=== PATIENT | female | born 1955 ===

== ENCOUNTER → 2023-11-03 12:10 | Outpatient (REF) | payer OTHER, SELFPAY ==
--- NOTE | 2023-10-21 10:59 | CM ---
Patient is scheduled for an elective R THR on 11/25/23. Spoke with patient prior to surgery via telephone. Introduced role of Orthopedic Navigator. Patient reports that she lives with two friend in a one story home. There are two steps to enter. She
currently functions independently. She has a cane, rollator, raised toilet seat, firm cushion and hip kit. She has never had VN services. PCP is Esau Maxwell.
Discussed orthopedic program and post surgical plans. Reviewed anticipated length of stay and that goal is for her to return home at discharge. Also reviewed outpatient PT. Patient is in agreement with tentative plan and will go directly to
outpatient PT. She will have support from her friends when she goes home.
Patient has completed online education.
Plan: Orthopedic Navigator will remain available to assist with the care of patient and will reassess discharge needs after surgery.
[2023-11-03 12:09] VITALS: BMI 42.5
[2023-11-03 13:46] LABS: Hematocrit 44.8 % (37.0-47.0); Hemoglobin 15.5 g/dL (12.0-16.0); Mean Corp Hgb Conc. 34.6 g/dL (33.0-37.0); Mean Corpuscular Hgb 31.3 pg (27.0-31.0); Mean Corpuscular Volume 90.3 fL (81.0-99.0); Mean Platelet Volume 10.3 fL (7.4-10.4); Platelet Count 248 10^3/uL (130-400); Red Blood Cell Count 4.96 10^6/uL (4.20-5.40); White Blood Cell Count 6.4 10^3/uL (4.8-10.8)
[2023-11-03 14:20] LABS: ALT (SGPT) 20 U/L (0-35); AST (SGOT) 21 U/L (14-36); Albumin 4.5 g/dl (3.5-5.0); Alkaline Phosphatase 91 U/L (38-126); Blood Urea Nitrogen 17 mg/dl (7-17); Calcium 9.7 mg/dl (8.4-10.2); Carbon Dioxide 24 mmol/L (22-30); Chloride 103 mmol/L (98-107); Estimated Creatinine Clearance 84 ml/min; Glucose 108 mg/dl (70-99); Sodium 137 mmol/L (135-145); Total Protein 7.3 g/dl (6.3-8.2); eGFR > 60.00
[2023-11-03 14:27] LABS: Glycohemoglobin (HgbA1c) 5.5 % (4.0-5.6)
[2023-11-03 14:57] VITALS: BMI 42.5
== END ==
LOC: REG 12:10
PROVIDERS: ATTENDING PHYSICIAN Orthopaedic Surgery; FAMILY PHYSICIAN Family Medicine; OTHER PHYSICIAN Physician Assistant Medical
DX: M16.11 Unilateral primary osteoarthritis, right hip (principal); Z01.818 Encounter for other preprocedural examination
CPT/HCPCS: 36415; 80053; 83036; 85027; 87070; 93005

== ENCOUNTER 2024-04-13 12:06 | Inpatient (IN) | payer OTHER, SELFPAY ==
[2024-03-21 14:05] VITALS: BMI 43.4
[2024-03-21 15:04] LABS: Hematocrit 43.9 % (37.0-47.0); Hemoglobin 15.1 g/dL (12.0-16.0); Mean Corp Hgb Conc. 34.4 g/dL (33.0-37.0); Mean Corpuscular Hgb 30.6 pg (27.0-31.0); Mean Platelet Volume 9.9 fL (7.4-10.4); Platelet Count 230 10^3/uL (130-400); Red Blood Cell Count 4.93 10^6/uL (4.20-5.40); Red Cell Dist. Width 13.2 % (11.5-14.5); White Blood Cell Count 5.9 10^3/uL (4.8-10.8)
[2024-03-21 15:05] LABS: ALT (SGPT) 22 U/L (0-35); AST (SGOT) 24 U/L (14-36); Albumin 4.5 g/dl (3.5-5.0); Alkaline Phosphatase 80 U/L (38-126); Blood Urea Nitrogen 16 mg/dl (7-17); Calcium 9.5 mg/dl (8.4-10.2); Carbon Dioxide 27 mmol/L (22-30); Chloride 103 mmol/L (98-107); Estimated Creatinine Clearance 82 ml/min; Glucose 104 mg/dl (70-99); Potassium 3.9 mmol/L (3.5-5.1); Sodium 141 mmol/L (135-145); Total Protein 7.1 g/dl (6.3-8.2); eGFR > 60.00
[2024-03-22 09:43] LABS: Glycohemoglobin (HgbA1c) 5.3 % (4.0-5.6)
[2024-04-07 09:23] VITALS: BMI 43.4
[2024-04-13] VITALS (12 sets, daily range): BP systolic 129–156; BP diastolic 81–105; BMI 43.4
[2024-04-13] MEDS: CELEBREX 200 MG PO (12:38)
[2024-04-13] MEDS: TYLENOL 650 MG PO ×2 (12:38→20:05)
--- NOTE | 2024-04-13 14:17 | W.PN.UPDATE ---
Update Note
Progress Note Update
R hip OA s/p R LIANG w/ Dr Boothe 04/13/24
- s/p L LIANG by Dr. Eng
DVT prophylaxis - ASA, b/l venous foot pumps
HTN - + parameters - monitor BP
Fibromyalgia - monitor pain and adjust meds prn
CAD, non-obstructive
Mild valvular disease
Venous insufficiency
Migraines
RLS
Vertigo
DDD
Hypothyroidism
Depression
Anxiety
Morbid obesity BMI 43.4
[2024-04-13] MEDS: SUBLIMAZE 50 MCG IV ×2 (16:16→16:25)
[2024-04-13] MEDS: DILAUDID 0.5 MG IV ×3 (16:39→17:24)
--- NOTE | 2024-04-13 16:59 | OR.RPT ---
Operative Report
Operative Report
Orthopaedic Surgery Operative Note
DATE OF OPERATION: 04/13/2024
PREOPERATIVE DIAGNOSES: Osteoarthritis, right hip
POSTOPERATIVE DIAGNOSES: Same
OPERATION PERFORMED: Right total hip arthroplasty (58811 with 22 modifier for complexity)
SURGEON: Yg Boothe MD
LITHOGRAPH OPERATOR: Herman Gusman PA-C who assisted with patient positioning and retraction
ANESTHESIA: Spinal
COMPLICATIONS: None.
ESTIMATED BLOOD LOSS: 50 mL.
DRAINS: None
SPECIMEN: None
FINDINGS: Advanced articular cartilage wear on the femoral head and acetabulum.
IMPLANTS:
Biomet G7 Acetabular Shell, cluster hole, size 52
Biomet G7 Highly Crosslinked PE Liner, neutral
Magdalena M/L Taper femoral stem, size 10 with standard neck length and standard offset
Biolox Ceramic Head, size 36mm +0
INDICATIONS: The patient presented to my office with debilitating right hip pain due to osteoarthritis. We reviewed the natural history of this problem, as well as the risks, benefits, and alternatives of various treatment options. The patient
exhausted all nonoperative treatment options and wished to proceed with hip replacement surgery. The patient understood the risks which included, but were not limited to, bleeding, infection, failure to relieve pain, more pain than preop, damage to
blood vessels and nerves, need for reoperation, mechanical failure of the implants, wound healing problems, stiffness, instability, blood clot, pulmonary embolism, myocardial infarction, pneumonia, arrhythmia, CVA, and . The patient accepted
these risks and wished to proceed. All questions were answered, and informed consent was obtained.
PROCEDURE IN DETAIL: The patient was identified in the preoperative holding area. The right hip was identified as the operative site. The patient was taken in the operating room and transferred to the operative table. Spinal anesthesia was
performed. IV antibiotics and tranexamic acid were administered. The patient was placed in the lateral position with Stulberg hip positioners. Axillary roll was placed. The down leg was well padded. All bony prominences were well padded. The
operative limb was prepped and draped in the usual sterile fashion.
Time out was performed. A posterolateral approach to the hip was used. The skin incision was centered over the greater trochanter. This was taken down sharply through subcutaneous tissues. Meticulous hemostasis was achieved throughout the case with
electrocautery. We split the fascia phill in line with skin incision. I split the gluteus uadrey bluntly. We cauterized all crossing vessels as we split it. I palpated the sciatic nerve and made sure it was well posterior in the operative field. It
was protected throughout the case.
I performed a partial bursectomy to identify the short external rotators. The gluteus medius and minimus were identified and retracted anteriorly. I incised the piriformis tendon and conjoint tendon at their insertions. These were tagged for later
repair. I then performed a trapezoidal capsulotomy. The edges were tagged for later repair. I referenced the cut edge of the capsular flap to 2 fixed points on the greater trochanter for assistance with recreation of limb length and offset. I then
dislocated the hip posteriorly. I performed a femoral neck osteotomy approximately 10 mm above the lesser trochanter, as per preoperative templating. The femoral head measured 48 mm in outer diameter. The distance between neck cut and the center of
femoral head was 35 I placed a curve hohmann retractor over the anterior lip of the acetabulum between the labrum and the anterior hip capsule. A second retractor was placed inferiorly just distal to the transverse acetabular ligament.
Circumferential view of the acetabulum was achieved. I incised the labrum and pulvinar with electrocautery. I started with a 47 mm reamer and reamed down to the medial wall. I then sequentially reamed up to a 51mm reamer. This gave a nice bed of
bleeding bone with excellent column support anteriorly and posteriorly. I impacted the acetabular shell in approximately 40 degrees of abduction and 20 degrees of anteversion. I matched the anteversion of the transverse acetabular ligament. I also
made sure that the anterior rim of the socket was not proud of the anterior wall to minimize the chance of iliopsoas tendinitis. I confirmed the cup was well-seated. I then impacted a neutral liner and confirmed it was well seated with the locking
mechanism.
On the femoral side, I use a box osteotome to open the proximal starting point. I found the canal with a Charnley awl and a lateralizing reamer. I then used the Magdalena M/L taper broaches sequentially to prepare the femoral canal. The size 10 came to
a stop at the desired level and had excellent axial and rotational stability. We trialed with a trial ball head. The hip was taken through a complete range of motion. It was noted to be stable in extension without impingement. It was stable in the
position of sleep and in flexion with internal rotation. The limb length and offset were checked compared to the capsular flap and was appropriate. The measured length between the neck cut and center of the trial femoral head was 37.5 mm.
I removed the trials. I impacted the femoral implant to match the galena version. It had excellent axial and rotational stability. Trial ball head was placed, and I reduced the hip and took the hip through range of motion. There was no impingement
in external rotation and extension. Position of sleep was stable. At 90 degrees of flexion and slight adduction, the hip could be internally rotated to 90 degrees with no subluxation. I palpated the sciatic nerve, which was tension free and
unharmed. Based on our capsular flap measurement, we had restored the offset and leg length. The trial ball head was removed, and the final ball head was impacted onto a clean and dry Rosales taper. The hip was reduced.
A dilute betadine soak was performed for approximately 3 minutes, and then the hip was copiously irrigated. I repaired the capsule, piraformis, and conjoint tendon with #2 Ethibond to drill holes in the greater trochanter. Local anesthetic was
injected. The fascia phill was closed with #1 PDS in running fashion. The subcutaneous tissues were closed with 2-0 PDS in running fashion. The skin was reapproximated with 3-0 Monocryl subcuticular suture. I placed a Prineo dressing followed by a
Mepilex Ag dressing. The patient awoke from anesthesia without difficulty. Sponge and instrument counts were correct x2 at the end of the case.
I was present and participated in the entire procedure. The patient was sent to the recovery room in stable condition. Of note, 22 modifier was added for BMI >40kg/m2 which added 20 additional minutes for positioning, exposure, and implanting the
components
Sen Boothe MD
[2024-04-13] MEDS: ROXICODONE 5 MG PO (17:08)
[2024-04-13] MEDS: ZOFRAN 4 MG IV (17:58)
--- NOTE | 2024-04-13 18:01 | SUR.PHASEI ---
Immediately prior to leaving pacu pt stated she was starting to have some nausea. Pt medicated with zofran prior to leaving pacu.
--- NOTE | 2024-04-13 18:10 | PTCARENOTE ---
Pt received from the PACU via bed. Transport was w/o incident. Pt is Awake, sl drowsy, answers questions appropriately. Pt reports her pain as manageable at present, and admits to mild nausea. Pt was medicated with Zofran in PACU prior to transfer
to [facility]. VSS, pt is afebrile. Pt's Right hip with Silver Mepilix dressing C/D/I no drainage noted. Pt instructed on plan of care. Pt verbalized understanding of instructions. Call mosher is at bedside.
[2024-04-13] MEDS: TYLENOL PO (18:31)
[2024-04-13] MEDS: DIOVAN 160 MG PO (18:45)
[2024-04-13] MEDS: NORMOSOL-R/PLASMALYTE-A 1000 IV (18:45)
[2024-04-13] MEDS: ASPIRIN 325 MG PO (18:46)
[2024-04-13] MEDS: CYMBALTA DELAYED RELEASE 60 MG PO (18:46)
[2024-04-13] MEDS: PROTONIX 40 MG PO (18:47)
[2024-04-13] MEDS: COLACE 100 MG PO (20:04)
[2024-04-13] MEDS: BACTROBAN 2% OINTMENT 1 APPLIC NASAL (20:04)
[2024-04-13] MEDS: DECADRON 4 MG PO (20:05)
[2024-04-13] MEDS: COMPAZINE 5 MG PO (20:05)
[2024-04-13] MEDS: ROXICODONE 10 MG PO (20:05)
[2024-04-13] MEDS: SENOKOT 17.2 MG PO (20:06)
[2024-04-13] MEDS: ANCEF 5 IV (22:25)
[2024-04-14 00:01] VITALS: BP 115/73
[2024-04-14] MEDS: TYLENOL 650 MG PO ×3 (00:15→09:40)
[2024-04-14] MEDS: ROXICODONE 10 MG PO ×2 (00:17→04:45)
[2024-04-14 03:37] VITALS: BP 131/86
[2024-04-14] MEDS: SYNTHROID 137 MCG PO (04:45)
[2024-04-14] MEDS: ANCEF 5 IV (05:47)
[2024-04-14 06:40] LABS: Hemoglobin 13.7 g/dL (12.0-16.0)
[2024-04-14 06:57] VITALS: BP 130/82
[2024-04-14] MEDS: DIOVAN PO (08:32)
[2024-04-14] MEDS: CYMBALTA DELAYED RELEASE 60 MG PO (08:33)
[2024-04-14] MEDS: ASPIRIN 325 MG PO (08:33)
[2024-04-14] MEDS: CELEBREX 200 MG PO (08:33)
[2024-04-14] MEDS: PROTONIX 40 MG PO (08:33)
[2024-04-14] MEDS: BACTROBAN 2% OINTMENT 1 APPLIC NASAL (08:34)
[2024-04-14] MEDS: COLACE 100 MG PO (08:34)
[2024-04-14] MEDS: SENOKOT 17.2 MG PO (08:34)
[2024-04-14] MEDS: DECADRON 4 MG PO (08:34)
[2024-04-14] MEDS: COMPAZINE 5 MG PO (08:41)
[2024-04-14] MEDS: TRANSDERM-SCOP 1 PATCH TRANSDERM (09:35)
[2024-04-14] MEDS: ZOFRAN 4 MG IV (09:39)
[2024-04-14] MEDS: NEURONTIN 200 MG PO (09:39)
[2024-04-14] MEDS: LIDOCAINE 4% PATCH 2 PATCH TOPICAL (09:40)
[2024-04-14] MEDS: FIORICET 1 TAB PO (09:40)
[2024-04-14 11:00] VITALS: BP 137/89
[2024-04-14 11:45] VITALS: BP 136/74; PULSE 76
[2024-04-14] MEDS: ULTRAM 50 MG PO (11:46)
--- NOTE | 2024-04-14 12:10 | W.PN.ORTHO ---
Today's Communication / Plan
-
Await PT recs. Pt did well w/ OT.
D/c later today if remaining clinically stable.
Assessment
.
Distal Motor Intact: Yes
Dressing:
Clean, dry and intact.
Assessment:
R hip OA s/p R LIANG w/ Dr Boothe 04/13/24
- s/p L LIANG by Dr. Eng
DVT prophylaxis - ASA, b/l venous foot pumps
Post-op nausea - likely 2* Oxycodone (previous ADRs to Dilaudid, Morphine) - will switch to PO Tramadol
- Add Scopolamine patch d/t underlying motion sickness
- Has Zofran prn upon d/c
Headache, consistent w/ her migraines - previous triptan use - Fioricet provided
HTN - + parameters - BPs overall stable
Fibromyalgia - pain meds further adjusted to include Gabapentin for neuropathic pain, lidocaine patches
CAD, non-obstructive
Mild valvular disease
Venous insufficiency
Migraines
RLS
Vertigo
DDD
Hypothyroidism
Depression
Anxiety
Morbid obesity BMI 43.4
Plan
.
Surgery / Date: R LIANG w/ Dr Boothe 04/13/24
DVT Prophylaxis: Aspirin
Activity:
Out of bed.
PT/OT
Discharge Plan: Home w/ Outpatient PT
Subjective
.
.:
Patient examined resting in her chair.
Post-op nausea - likely 2* Oxycodone.
Reports a headache this AM which is comparable to her migraines.
Vital Signs and Labs
.
Vital Signs and Labs:
Lab Results
04/14/24 06:27
03/21/24 13:30
Temp Pulse Resp BP Pulse Ox
97.7 F 79 15 130/82 95
04/14/24 06:57 04/14/24 06:57 04/14/24 06:57 04/14/24 06:57 04/14/24 06:57
Physical Exam
-
HEENT: No pallor, cyanosis, or jaundice. Throat clear.
NECK: Supple. No JVD.
RESPIRATORY: Lungs clear to auscultation.
CVS: S1, S2 normal. RRR.�
ABDOMEN: Soft, non-tender. No distension. Morbidly obese.
EXTREMITIES: Minimal bruising around R hip. Strength equal, no calf pain with palpation/dorsiflexion. Calves soft.
SOFTWARE QUALITY MANAGER: AOx3. No focal deficits. pharmacy grad intern grossly intact
[2024-04-14 12:23] VITALS: BP 137/89; PULSE 79; O2SAT 96
--- NOTE | 2024-04-14 12:33 | W.DS.TRANS ---
DC Summary - Cath Lab Tech
-
Discharge Instructions:
Sleep Apnea Risk Intermediate
Discharge Diagnosis/Procedures R hip OA s/p R LIANG w/ Dr Boothe 04/13/24
Diet Regular
Activity As tolerated,With Walker
Driving Restrictions Not until seen by your Dr
Bathing Restrictions OK to Shower
Other Services PT
Wound Care Leave dressing on until seen by surgeon's office
for follow-up.
Instructions:
Stand-Alone Forms: Total Hip/Knee Replacement D/C
Changes to Home Medications: Yes
Discharge Medications:
DC Medications w/original date entered in [employer]
duloxetine 60 mg capsule,delayed release (Cymbalta) 60 mg PO DAILY Mental Health/Anxiety 10/29/23
levothyroxine 137 mcg tablet 137 mcg PO DAILY Thyroid 10/29/23
mupirocin 2 % topical ointment 1 applic topical BID surgery 04/07/24
acetaminophen 500 mg tablet (Tylenol Extra Strength) 1,000 mg (2 x 500 mg) PO Q6H #60 tabs 04/14/24
aspirin 325 mg tablet 325 mg PO DAILY #30 tabs 04/14/24
celecoxib 100 mg capsule (Celebrex) 100 mg PO BID #30 caps 04/14/24
dexamethasone 4 mg tablet 4 mg PO Q12H Anti-inflammatory #7 tabs 04/14/24
docusate sodium 100 mg capsule 100 mg PO BID #30 caps 04/14/24
gabapentin 100 mg capsule 200 mg (2 x 100 mg) PO BID neuropathic pain #30 caps 04/14/24
lidocaine 4 % topical patch 2 patch topical DAILY #30 ea 04/14/24
ondansetron HCl 4 mg tablet 4 mg PO Q6H PRN nausea and vomiting #30 tabs 04/14/24
pantoprazole 40 mg tablet,delayed release 40 mg PO DAILY #30 tabs 04/14/24
sennosides 8.6 mg tablet (Senna Laxative) 17.2 mg (2 x 8.6 mg) PO BID #30 tabs 04/14/24
tramadol 50 mg tablet 50 mg PO Q6H PRN moderate-severe pain #30 tabs 04/14/24
valsartan 160 mg-hydrochlorothiazide 25 mg tablet 1 tab PO DAILY Blood Pressure #1 tab 04/14/24
Home Medication Changes
acetaminophen 500 mg tablet (Tylenol Extra Strength) 1,000 mg (2 x 500 mg) PO Q6H #60 tabs 04/14/24
aspirin 325 mg tablet 325 mg PO DAILY #30 tabs 04/14/24
celecoxib 100 mg capsule (Celebrex) 100 mg PO BID #30 caps 04/14/24
dexamethasone 4 mg tablet 4 mg PO Q12H Anti-inflammatory #7 tabs 04/14/24
docusate sodium 100 mg capsule 100 mg PO BID #30 caps 04/14/24
gabapentin 100 mg capsule 200 mg (2 x 100 mg) PO BID neuropathic pain #30 caps 04/14/24
lidocaine 4 % topical patch 2 patch topical DAILY #30 ea 04/14/24
ondansetron HCl 4 mg tablet 4 mg PO Q6H PRN nausea and vomiting #30 tabs 04/14/24
pantoprazole 40 mg tablet,delayed release 40 mg PO DAILY #30 tabs 04/14/24
sennosides 8.6 mg tablet (Senna Laxative) 17.2 mg (2 x 8.6 mg) PO BID #30 tabs 04/14/24
tramadol 50 mg tablet 50 mg PO Q6H PRN moderate-severe pain #30 tabs 04/14/24
Pending Results: No
[2024-04-14] MEDS: TYLENOL PO (13:11)
[2024-04-14] MEDS: FLUAD (65 yr+) 2024-2025 FORMULA 0.5 ML IM (13:18)
--- NOTE | 2024-04-14 13:28 | CM ---
Met with patient at bedside; initial assessment completed
Pharmacy verified: [facility] @ [address], [place], [place]
IMM benefit explained; form signed @ [id number]
Patient reported she lives in a multilevel home with 2 friends; 2 steps to enter; has 1st floor set up with bedroom and bathroom; her bath has tub w/shower, grab bar and shower chair
PLOF: reported she was independent with ADLs; no device with ambulation; retired; drives
DME: Rolling walker and Cane
No SNF or Home Health utilization history
Friend, Cindy, will transport home
Plan: Discharge to home today; Per PA scheduled for outpatient PT
== END 2024-04-14 14:34 | disposition home or self-care (01) | DRG 470 ==
LOC: 2 SOUTH 12:06
PROVIDERS: ADMITTING PHYSICIAN Orthopaedic Surgery; FAMILY PHYSICIAN Family Medicine; REFERRING PHYSICIAN Specialist
PROC: 0SR904Z Replacement of Right Hip Joint with Ceramic on Polyethylene Synthetic Substitute, Open Approach (ICD-10-PCS; 2024-04-13)
DX: M16.11 Unilateral primary osteoarthritis, right hip (principal); I10 Essential (primary) hypertension; E03.9 Hypothyroidism, unspecified; M79.7 Fibromyalgia; G43.809 Other migraine, not intractable, without status migrainosus; R11.0 Nausea; T40.2X5A Adverse effect of other opioids, initial encounter; Z79.890 Hormone replacement therapy; Z79.899 Other long term (current) drug therapy; Z98.1 Arthrodesis status; Z88.5 Allergy status to narcotic agent
CPT/HCPCS: 36415; 73502; 80053; 83036; 85014; 85018; 85027; 87070; 90662; 97110; 97162; 97166; 97535; C1776; G0008